=== PATIENT | female | born 1975 | race African-American/Black ===

== ENCOUNTER 2018-03-28 11:39 | Emergency (ER) | payer BC ==
[~2018-03-28] VITALS: Ht 175.3 cm; Wt 93.0 kg
--- NOTE | ~2018-03-28 | EKG ---
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: : 1975 Requested By: Lisa Wright Order Number: [id number] MD: Santos Luna Measurements Intervals [place] Rate: 75 P: 32 MD: 160 QRS: -14 QRSD: 84 T: 7 QT: 380 QTc: 425 Interpretive Statements Sinus rhythm Left ventricular hypertrophy ST elev, probable normal early repol pattern Compared to ECG 08/21/2017 02:00:22 ST (T wave) deviation now present Electronically Signed On 03-29-2018 11:03:46 CDT by Santos Luna [email or web address] <ELECTRONICALLY SIGNED> By: Santos Luna MD 03/29/18 1103 1254 1254 Santos Luna MD /RENY
[~2018-03-28 11:39] MED LIST: AMLODIPINE BESY10 MG PO; FISH OIL 1,001000 M2; HYDROCHLOROTHIA25 M2; IBUPROFEN 600600 M1 PO; KEPPRA 500 MG500 M1 PO; NORCO 5-325 TA1 EACH PO; UNICOMPLEX M TA1 TA1 PO; VALIUM5 MG PO
[2018-03-28 12:18] LABS: ABSOLUTE NEUTROPHILS 6.7 thou/uL (1.4-8.2); HEMATOCRIT 38.2 % (37.0-47.0); HEMOGLOBIN 12.8 gm/dL (12.0-15.0); LYMPHOCYTES 22.4 % (24.0-44.0); MCH 28.1 pg (26.0-34.0); MCHC 33.5 g/dL (28.0-37.0); MCV 83.9 fL (80.0-100.0); PLATELET COUNT 374 thou/uL (150-400); POLYS 65.6 % (36.0-66.0); RBC 4.55 mil/uL (4.20-5.00); RDW 13.7 % (10.5-14.5); WBC 10.2 thou/uL (4.0-11.0)
[2018-03-28 12:27] LABS: CALCIUM 9.1 mg/dL (8.5-10.1); CREATININE 0.8 mg/dL (0.6-1.0); POTASSIUM 3.5 mmol/L (3.5-5.1)
[2018-03-28 12:34] LABS: ALBUMIN 3.5 g/dL (3.4-5.0); TOTAL BILIRUBIN 0.3 mg/dL (<0.1-1.0); TOTAL PROTEIN 7.9 g/dL (6.4-8.2)
[2018-03-28 13:47] LABS: URINE BILIRUBIN NEGATIVE (Negative); URINE BLOOD 1+ (Negative); URINE CLARITY CLEAR; URINE COLOR YELLOW; URINE GLUCOSE-RANDOM* NEGATIVE (Negative); URINE KETONES NEGATIVE (Negative); URINE LEUKOCYTES-REFLEX NEGATIVE (Negative); URINE NITRITE-REFLEX NEGATIVE (Negative); URINE PROTEIN (DIPSTICK) NEGATIVE (Negative); URINE UROBILINOGEN 0.2 E.U./dl (0.2-1.0)
[2018-03-28] MEDS ORDERED: NORVASC10 MG PO (13:51)
[2018-03-28] MEDS ORDERED: KEPPRA 500 MG500 M1 PO (13:51)
[2018-03-28 13:53] LABS: SQUAMOUS 4-10 Moderate /LPF (0-3)
[2018-03-28 13:54] LABS: BACTERIA-REFLEX 1-9 Few /HPF (None Seen); CASTS None Seen /LPF (None Seen); CRYSTALS None Seen /LPF (None Seen); URINE RBC 3-10 Few /HPF (0-2); URINE WBC-REFLEX None Seen /HPF (0-5)
[2018-03-28 13:55] LABS: AMP/METHAMP Negative (Negative); BARBITURATES Negative (Negative); BENZODIAZEPINES Negative (Negative); COCAINE Negative (Negative); METHADONE Negative (Negative); OPIATES Negative (Negative); PCP Negative (Negative)
[2018-03-28 14:11] VITALS: BP 158/91
== END 2018-03-28 14:46 | disposition home or self-care (01) ==
LOC: ER 11:39
PROVIDERS: Physician Assistant
DX: R56.9 Unspecified convulsions (principal); I10 Essential (primary) hypertension; Z76.0 Encounter for issue of repeat prescription; Z91.14 Patient's other noncompliance with medication regimen; F17.210 Nicotine dependence, cigarettes, uncomplicated; Z88.1 Allergy status to other antibiotic agents; Z88.8 Allergy status to other drugs, medicaments and biological substances; Z90.49 Acquired absence of other specified parts of digestive tract; Z90.89 Acquired absence of other organs

== ENCOUNTER 2018-06-30 14:00 | Emergency (ER) | payer BC ==
[~2018-06-30] VITALS: Ht 175.3 cm; Wt 104.3 kg
[~2018-06-30 14:00] MED LIST changes: +NORVASC10 MG PO
[2018-06-30] MEDS ORDERED: KEPPRA 500 MG500 M1 PO ×2 (14:55→15:00)
[2018-06-30 15:07] VITALS: BP 171/94
--- NOTE | 2018-07-01 08:18 | EKG ---
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 : 1975 Requested By: Akash Jones Order Number: [id number] MD: Charlie Chen Measurements Intervals [place] Rate: 90 P: 36 [place]: 156 QRS: -7 QRSD: 86 T: 12 QT: 354 QTc: 433 Interpretive Statements Sinus rhythm Probable left atrial enlargement Left ventricular hypertrophy Compared to ECG 03/28/2018 12:54:56 ST (T wave) deviation no longer present Electronically Signed On 07-01-2018 8:18:28 CONFERENCE DIRECTOR by Charlie Chen [email or web address] <ELECTRONICALLY SIGNED> By: Charlie Chen MD 07/01/1818 1441 1441 Charlie Chen MD /RENY
== END 2018-06-30 15:08 | disposition home or self-care (01) ==
LOC: ER 14:00
DX: R55 Syncope and collapse (principal); I10 Essential (primary) hypertension; Z90.49 Acquired absence of other specified parts of digestive tract; E89.0 Postprocedural hypothyroidism; F17.210 Nicotine dependence, cigarettes, uncomplicated; Z88.1 Allergy status to other antibiotic agents; Z88.8 Allergy status to other drugs, medicaments and biological substances

== ENCOUNTER → 2018-08-21 | Outpatient (CLI) | payer BC ==
[~2018-08-21] MED LIST changes: +KEPPRA1000 MG PO
--- NOTE | ~2018-08-21 | EEG ---
[facility] [place] [address] ELECTROENCEPHALOGRAM Name: HILDA MAJANO Room #: [facility].#: [id number] ������������������ Admission: 08/21/18 ������������������ Attend Phys: Hu Faulkner MD Discharge: ������������������ Date of : 75 Report #: [id number] ����������������������������������������������������������������� [id number] THIS REPORT FOR: //name// CC: Bell Faulkner DATE OF SERVICE: 08/21/2018 This patient has a history of seizure. EEG was done to further evaluate that. EEG was done by placing the electrodes by standard 10-20 system of electrode placement. Both referential and sequential montages were used for recording. Background activity in this patient's EEG is about 11 Hz and 40 microvolt. The patient went to sleep and that is associated with bilateral slowing and vertex sharp waves. Photic stimulation is unremarkable. Throughout the record, no active epileptiform activity was noticed. IMPRESSION: This patient's electroencephalogram is within normal limits. It might be mentioned that electroencephalogram can be normal in a patient with seizure disorder. Thank you very much for this referral. ���������������������������������������� ���������������������������������������� By: ��������������������������������������������� 191 51 Hu Faulkner MD /nt
== END ==
LOC: NEURO 08:15
DX: R56.9 Unspecified convulsions (principal); G93.2 Benign intracranial hypertension

== ENCOUNTER 2018-08-23 17:38 | Inpatient (IN) | payer BC ==
[~2018-08-23] VITALS: Ht 175.3 cm; Wt 113.9 kg
--- NOTE | ~2018-08-23 | HC ---
[facility] [place] [address] CONSULTATION Name: HILDA MAJANO Room #: 460-P [facility] IN M.R.#: [id number] Admission: 08/23/18 ������������������ Attend Phys: Christian De Jesus MD Discharge: 08/24/18 ������������������ Date of : 75 Report #: [id number] THIS REPORT FOR: //name// CC: Christian Hebert REASON FOR CONSULTATION: Hypertension. HISTORY OF PRESENT ILLNESS: The patient is a 43-year-old woman with a history of a seizure disorder. She has a history of hypertension and tobacco dependency. She follows closely with Dr. Job Hebert and Dr. Faulkner. Yesterday, she had a witnessed seizure. She walked up stairs, and her witnessed tonic-clonic seizure activity, this lasted for about a minute. She does report that she has been out of her seizure medicines for a couple of days. She also reports being out of blood pressure medicines for quite some time. Presenting EKG demonstrated sinus tachycardia with minimal voltage for LVH, this was an otherwise normal tracing. She denies chest pain, pressure or heart failure symptoms. No history of palpitations, no heart failure symptoms including orthopnea, paroxysmal nocturnal dyspnea or lower extremity edema. MEDICATIONS: Include Keppra 500 mg twice daily. Her previous medicines include hydrochlorothiazide 25 mg daily. ALLERGIES: SHE IS ALLERGIC TO ERYTHROMYCIN. PAST MEDICAL HISTORY: Notable for hypertension, appendectomy, depression, cholecystectomy, partial thyroidectomy, tubal ligation. SOCIAL HISTORY: She is an ongoing smoker. . FAMILY HISTORY: Notable for mother who had heart related problems. She does not know more details on this. REVIEW OF SYSTEMS: All systems negative except as that noted above. PHYSICAL EXAMINATION: GENERAL: Reveals a pleasant woman in no distress. VITAL SIGNS: Blood pressure is 129/80, heart rate is 74 and regular. She is afebrile. HEENT: There are neither xanthelasma, subcutaneous xanthomata, oral mucosal or digital cyanosis or kyphoscoliosis present. CHEST: Clear to auscultation and percussion. CARDIOVASCULAR: Regular rate and rhythm with normal S1, S2. No murmurs, gallops or rubs. ABDOMEN: Soft and nontender. EXTREMITIES: Without cyanosis, clubbing or edema. Radial pulses are 2+. NEUROLOGIC: She is alert with a nonfocal exam. [facility] [address] [place] [address] CONSULTATION Name: HILDA MAJANO Room #: 460-P [facility] IN M.R.#: [id number] Admission: 08/23/18 ������������������ Attend Phys: Christian De Jessu MD Discharge: 08/24/18 ������������������ Date of : 75 Report #: [id number] LABORATORY DATA: Sodium 138, potassium 3.1, creatinine 0.8, troponin 0. Tox screen negative. White count 13, hemoglobin 11, hematocrit 34, platelet count 334. Head CT unremarkable. Chest x-ray normal. IMPRESSION: 1. Seizure disorder, recurrent, off medicines. 2. Hypertension. 3. Tobacco dependency. RECOMMENDATIONS: 1. Resume HCTZ with potassium supplementation. 2. Compliance with medicines reinforced. 3. Dietary salt restriction -- diet discussed. Periodic home blood pressure assessments recommended. 4. Consider echocardiogram with Doppler to evaluate for LVH. I have discussed these issues with the patient and her family. Thank you for asking me to participate in her care. ��������������������������������������������� ���������������������������������������� By: ��������������������������������������������� 1623 1210 Pieter Gonzalez MD, FACC /nt
--- NOTE | ~2018-08-23 | HC ---
[facility] [place] [address] CONSULTATION Name: HILDA MAJANO Room #: 460-P [facility] IN M.R.#: [id number] Admission: 08/23/18 ������������������ Attend Phys: Christian De Jesus MD Discharge: 08/24/18 ������������������ Date of : 75 Report #: [id number] THIS REPORT FOR: //name// [facility] DATE OF SERVICE: 08/24/2018 HISTORY OF PRESENT ILLNESS: This is a 43-year-old female patient who was seen by me for seizures. This patient has an extreme amount of noncompliance. I had multiple discussions with this patient in the past. I saw the patient yesterday in the Emergency Room as well as today. I again had discussion with her that there is some amount of compliance she has can be catastrophic and it can be fatal. She had a history of seizure, but we have not determined any cause for that. I have done an MRI of the brain with and without contrast and we did also an MRV in this patient. All the workup has been unremarkable, but this patient continued to have seizure, but this always happened when this patient tried to stop her medication. At this time, the patient has run out of her medications. I called myself and I called the pharmacy and I told her that she must take her medications and not miss a dose. She took 1 dose, then she said she did not take it for 2 days. I do not know why she will not take medicine for 2 days and she does not have any excuse either. She has been diagnosed with pseudotumor cerebri. We have repeatedly asked her to go to Dr. Metcalf. She has not made that appointment, but finally she did it, but she has not seen Dr. Metcalf. REVIEW OF SYSTEMS: Positive for seizure, but there is extreme amount of noncompliance, which is a problem; however, the workup for seizure has been mostly unremarkable. She said she used to have a small seizure, now she has big seizure, she does not like Keppra. She had tubal ligation in the past. She had a partial thyroidectomy. She had a history of depression in the past. PAST MEDICAL HISTORY: As described above. FAMILY HISTORY: Unremarkable. SOCIAL HISTORY: She said she smokes cigarettes, but she does not use any other drugs and she does not drink alcohol. PHYSICAL EXAMINATION: Indicates she is alert. She is responsive. She can follow simple commands. Her cranial nerve examinations appear unremarkable. I [address] [address] CONSULTATION Name: HILDA MAJANO Room #: 460-P [facility] IN ..#: [id number] Admission: 08/23/18 ������������������ Attend Phys: Christian De Jesus MD Discharge: 08/24/18 ������������������ Date of : 75 Report #: [id number] cannot look at the fundus very well, but she has an appointment with Dr. Metcalf. Neuromuscular examinations appear unremarkable. There is no meningeal sign. There is no cardiac abnormality. Vital signs are maintained with a blood pressure of 129/80, respirations 15, pulse is 74, temperature is 98.4. She did have increased white count, but that is probably because of her seizures. Her head CT was unremarkable. They did even a CT C-spine, which also appeared unremarkable. Her magnesium was normal. IMPRESSION: 1. History of seizure, but all the workup so far is unremarkable. 2. Subtle abnormality in EKGs, but no arrhythmias have been demonstrated, which can explain the patient's seizures. 3. They do look epileptic seizure even if the EEG continued to be normal. 4. Extreme amount of dangerous noncompliance. RECOMMENDATIONS: 1. Neurologically, I think we should continue Keppra for the time being. 2. I asked her to go to Dr. Tinsley at [facility] who is an epileptologist and see if she needs prolonged EEG or any other workup, but presently, I stressed the compliance that she should stay on the medication. 3. I think we should do some cardiac workup because of EKG abnormalities and the fact that we have never documented any abnormality on her MRI, although her EEG has demonstrated epileptiform activity at one time, but now it is normal. More than 50 minutes of time was spent taking care of this patient and majority of that time was spent counseling the patient on above. I did put a consult with cardiology and probably she should have an echocardiogram or anything else, but from neurological perspective, she can be dismissed. She need to take seizure precautions, which has been discussed with her. ��������������������������������������������� ���������������������������������������� By: ��������������������������������������������� 1258 1033 Hu Faulkner MD /nt
--- NOTE | ~2018-08-23 | EEG ---
[facility] [place] [address] ELECTROENCEPHALOGRAM Name: HILDA MAJANO Room #: 460-P [facility] IN M.R.#: [id number] ������������������ Admission: 08/23/18 ������������������ Attend Phys: Christian De Jesus MD Discharge: ������������������ Date of : 75 Report #: [id number] ����������������������������������������������������������������� [id number] THIS REPORT FOR: //name// CC: Christian Luu [facility] DATE OF SERVICE: 08/24/2018 This patient is being evaluated for seizure. Her EEG was done by placing the electrodes by standard 10-20 system of electrode placement. Both referential and sequential montages were used for recording. Background activity in this patient's EEG is about 9 Hz and 30 microvolts. The patient became drowsy that is associated with bilateral slowing. Photic stimulation was unremarkable. Throughout the record, no active epileptiform activity was noticed. IMPRESSION: This patient's EEG is within normal limits. It does not demonstrate any clear-cut epileptiform activity. EEG can be normal in a patient with seizure disorder. ���������������������������������������� ���������������������������������������� By: ��������������������������������������������� 1216 1431 Hu Faulkner MD /nt
[2018-08-23 17:38] VITALS: BP 202/106
[~2018-08-23 17:38] MED LIST changes: -KEPPRA1000 MG PO
[2018-08-23 18:10] LABS: ABSOLUTE NEUTROPHILS 12.5 thou/uL (1.4-8.2); BASOPHILS 0.5 % (0.0-2.0); EOSINOPHILS 0.8 % (0.0-3.0); HEMOGLOBIN 12.8 gm/dL (12.0-15.0); LYMPHOCYTES 19.5 % (24.0-44.0); MCHC 32.9 g/dL (28.0-37.0); MCV 85.2 fL (80.0-100.0); PLATELET COUNT 364 thou/uL (150-400); POLYS 72.2 % (36.0-66.0); RBC 4.57 mil/uL (4.20-5.00); WBC 17.3 thou/uL (4.0-11.0)
[2018-08-23 18:18] LABS: CALCIUM 9.2 mg/dL (8.5-10.1); CREATININE 1.1 mg/dL (0.6-1.0); POTASSIUM 3.6 mmol/L (3.5-5.1)
[2018-08-23 18:24] LABS: ALBUMIN 3.8 g/dL (3.4-5.0); TOTAL BILIRUBIN 0.2 mg/dL (<0.1-1.0)
[2018-08-23 19:47] LABS: URINE BILIRUBIN NEGATIVE (Negative); URINE BLOOD 2+ (Negative); URINE CLARITY CLEAR; URINE COLOR YELLOW; URINE GLUCOSE-RANDOM* NEGATIVE (Negative); URINE KETONES NEGATIVE (Negative); URINE LEUKOCYTES-REFLEX NEGATIVE (Negative); URINE NITRITE-REFLEX NEGATIVE (Negative); URINE PROTEIN (DIPSTICK) TRACE (Negative); URINE SPECIFIC GRAVITY >= 1.030 (1.005-1.035); URINE UROBILINOGEN 0.2 E.U./dl (0.2-1.0)
[2018-08-23 20:02] LABS: SQUAMOUS 4-10 Moderate /LPF (0-3)
[2018-08-23 20:06] LABS: BACTERIA-REFLEX 1-9 Few /HPF (None Seen); CASTS None Seen /LPF (None Seen); CRYSTALS None Seen /LPF (None Seen); URINE RBC 3-10 Few /HPF (0-2); URINE WBC-REFLEX 0-5 Rare /HPF (0-5)
[2018-08-23 23:28] VITALS: BP 151/83
[2018-08-24 00:03] LABS: AMP/METHAMP Negative (Negative); BARBITURATES Negative (Negative); BENZODIAZEPINES Negative (Negative); COCAINE Negative (Negative); METHADONE Negative (Negative); OPIATES Negative (Negative); PCP Negative (Negative)
[2018-08-24 00:23] VITALS: BP 160/89
[2018-08-24] MEDS ORDERED: KEPPRA1000 MG PO (00:31)
[2018-08-24 01:02] VITALS: BP 151/93
[2018-08-24 04:16] VITALS: BP 130/85
[2018-08-24 05:19] LABS: HEMATOCRIT 34.6 % (37.0-47.0); HEMOGLOBIN 11.4 gm/dL (12.0-15.0); MCV 84.7 fL (80.0-100.0); RBC 4.08 mil/uL (4.20-5.00); RDW 13.9 % (10.5-14.5); WBC 13.3 thou/uL (4.0-11.0)
[2018-08-24 05:31] LABS: CALCIUM 8.6 mg/dL (8.5-10.1); CREATININE 0.8 mg/dL (0.6-1.0); POTASSIUM 3.1 mmol/L (3.5-5.1)
--- NOTE | 2018-08-24 07:50 | NUR ---
PATIENT ARRIVED ON THE UNIT ON 08/24/18 0015HRS. UPON ARRIVAL, PT WAS AOX4 AND GAIT WAS STABLE. SEIZURE AND HIGH FALL RISK PRECAUTION ACTIVATED. PATIENT HAD A MEAL BEFORE FOING TO BED. THE NIGHT PROGESSED, PATIENT SLEPT WELL. NEURO CONSULT FOR DR. MURILLO WAS CALLED IN THE AM. PATIENT IS STABLE AND IS PROGRESSING TOWARDS DISCHARGE GOALS.
[2018-08-24 08:04] VITALS: BP 129/80
--- NOTE | 2018-08-24 11:44 | NUR ---
TOWARDS POC PT A/O X4, VSS, AFEBRILE, DENIES PAIN. NO EPISODES SEIZURES, FALL/SEIZURE PRECAUTION IN PLACE, AT BEDSIDE. PROBABLE DC TODAY, ONCE SEEN AND CLEARED BY NEURO. WILL CONTINUE TO MONITOR.
--- NOTE | 2018-08-24 11:49 | EKG ---
[address] [address] ELECTROCARDIOGRAM REPORT Name: HILDA MAJANO Room #: 460-P [facility] IN M.R.#: [id number] ������������������ Admission: 08/23/18 ������������������ Attend Phys: Christian De Jesus MD Discharge: ������������������ Date of : 75 Report #: [id number] ����������������������������������������������������������������� [id number] THIS REPORT FOR: //name// [facility] ED Test Date: 2018-08-23 Test Time: 17:50:38 Pat Name: HILDA MAJANO Department: Room: [facility] Gender: F Meteorologist In Charge: : 1975 Requested By: Radha Hernandez Order Number: [id number] MD: Pieter Gonzalez Measurements Intervals [place] Rate: 104 P: 47 [place]: 169 QRS: 0 QRSD: 84 T: 30 QT: 339 QTc: 446 Interpretive Statements Sinus tachycardia Left ventricular hypertrophy Compared to ECG 06/30/2018 14:41:20 Heart rate has increased Electronically Signed On 08-24-2018 11:49:45 CDT by Pieter Gonzalez [email or web address] ��������������������������������������������� <ELECTRONICALLY SIGNED> ���������������������������������������� By: Pieter Gonzalez MD, [facility] ��������������������������������������������� 08/24/18 1149 1750 175 Pieter Gonzalez MD, FACC /EPI
[2018-08-24 16:27] VITALS: BP 129/80
== END 2018-08-24 16:53 | disposition home or self-care (01) | DRG 101 ==
LOC: ER 17:38 → EROBS 20:47 → 4W 08-24 00:11
PROVIDERS: Nurse Practitioner Family; ADMIT Hospitalist
DX: G40.909 Epilepsy, unspecified, not intractable, without status epilepticus (principal); I10 Essential (primary) hypertension; E89.0 Postprocedural hypothyroidism; F17.210 Nicotine dependence, cigarettes, uncomplicated; Z90.49 Acquired absence of other specified parts of digestive tract; Z79.899 Other long term (current) drug therapy; Z88.1 Allergy status to other antibiotic agents; Z88.8 Allergy status to other drugs, medicaments and biological substances; Z82.49 Family history of ischemic heart disease and other diseases of the circulatory system

== ENCOUNTER 2019-01-02 01:51 | Emergency (ER) | payer BC ==
[~2019-01-02] VITALS: Ht 175.3 cm; Wt 63.5 kg
--- NOTE | ~2019-01-02 | EMS ---
[place] [address] EMS Patient Care Report Name: HILDA MAJANO Room #: DEP [facility]#: [id number] Admission: 01/02/19 Attend Phys: Discharge: 01/02/19 Date of : 75 Report #: [id number] THIS REPORT FOR: //name// Report Transmitted: 01/05/2019 11:36 EMS Care Summary [place], [place]/[facility] Incident [id number] @ 01/02/2019 01:[address] [place] [address] Patient HILDA MAJANO Female, 43 Years 1975 Patient Address [address] [place] [address] Patient History Hypertension,Seizures, Patient Allergies No known allergies, Patient Medications Topamax, Amlodipine, Chief Complaint Seizure Disposition Transported No Lights/[place] Reason Convulsions/Seizure Transported To [facility] Narrative 43 y/o female with a seizure. On arrival found pt laying on her right side in bed with and P28 on scene. stated the pt had a full body [place] [address] EMS Patient Care Report Name: HILDA MAJANO [facility] [id number] Admission: 01/02/19 Attend Phys: Discharge: 01/02/19 Date of : 75 Report #: [id number] five minutes prior to EMS arrival. Pt was alert to painful stimuli on EMS arrival. EMS checked pt VS and blood pressure was low. EMS attempted an IV, unsuccessful. P28/EMS rolled pt on her side to put the megamover under her to move pt to stretcher in front yard, pt started to wake up and come to. Pt was post ictal and confused. EMS/P28 used megamover to transfer pt to stretcher and into ambulance. Once in ambulance EMS placed an IV. EMS monitored pt/VS/ECG en route to [facility] ED. Transferred care of pt to [facility] ED RN without incident. Initial Vitals @01:40P: 109,BP: 119/62,SpO2: 95, @01:29P: 108,R: 18,BP: 82/47,Pain: 0/10,GCS: 11,Glucose: 202,CO: 11,SpO2: 93,Revised Trauma: 10, @01:46P: 102,BP: 110/69,GCS: 14,CO: 11,SpO2: 95, Assessments @01:27MENTAL:Other,SKIN:No Abnormalities,HEENT:Head/Face: No Abnormalities,Eyes: No Abnormalities,Neck/Airway: No Abnormalities,LUNG SOUNDS:General: No Abnormalities,Left Upper: No Abnormalities,Right Upper: No Abnormalities,Left Lower: No Abnormalities,Right Lower: No Abnormalities,ABDOMEN:General: No Abnormalities,Left Upper: No Abnormalities,Right Upper: No Abnormalities,Left Lower: No Abnormalities,Right Lower: No Abnormalities,PELVIS//GI:No Abnormalities,EXTREMITIES:Capillary Refill: Left Upper: < 2 Sec,Left Arm: No Abnormalities,Right Arm: No Abnormalities,Left Leg: No Abnormalities,Right Leg: No Abnormalities,PULSE:Radial: 2+ Normal,NEURO:Seizures,@01:45MENTAL:Person Oriented,Other,Time Oriented,Place Oriented,SKIN:HEENT:LUNG SOUNDS:ABDOMEN:PELVIS//GI:EXTREMITIES:PULSE:NEURO: Impression Seizures Procedures @01:27ALS AssessmentResponse: Not ApplicableSucceeded@01:39Saline Lock 10cc (20 ga) Site: Antecubital-LeftResponse: UnchangedSucceeded@01:31Saline Lock 0cc (20 ga) Site: Hand-RightResponse: UnchangedFailed Timeline 01:18,Call Received :18,Dispatch Notified :21,Dispatched :21,En Route 01:25,On Scene 01:27,At Patient 01:27,ALS Assessment,Response: Not ApplicableSucccolumb[facility], [facility] [address] [place] [address] EMS Patient Care Report Name: HILDA MAJANO [facility] [id number] Admission: 01/02/19 Attend Phys: Discharge: 01/02/19 Date of : 75 Report #: [id number] 01:29,BP: 82/47 M,PULSE: 108,RR: 18 R,SPO2: 93 Ox,ETCO2: ,B,PAIN: 0,GCS: 11, 01:31,Saline Lock 0cc 20 ga Site: Hand-Right,Response: UnchangedFailed, 01:39,Saline Lock 10cc 20 ga Site: Antecubital-Left,Response: UnchangedSucceeded, 01:40,BP: 119/62 M,PULSE: 109,RR: R,SPO2: 95 Ox,ETCO2: ,BG: ,PAIN: ,GCS: , 01:42,Depart Scene 01:46,BP: 110/69 M,PULSE: 102,RR: R,SPO2: 95 Ox,ETCO2: ,BG: ,PAIN: ,GCS: 14, 01:48,At Destination 01:59,Call Closed Disclaimer v1.1 Copyright 2019 [employer] This EMS Care Summary contains data elements from the applicable legal record (which may be displayed differently). It is designed to provide pertinent information for the following purposes: continuity of care, clinical quality, and state data reporting. The complete legal record is available to ED staff and administrators of the receiving hospital in [employer]'s Patient Tracker. All data is provided "as is."
--- NOTE | ~2019-01-02 | EMS ---
[place] [address] EMS Patient Care Report Name: HILDA MAJANO Room #: DEP [facility]#: [id number] Admission: 01/02/19 Attend Phys: Discharge: 01/02/19 Date of : 75 Report #: [id number] THIS REPORT FOR: //name// Report Transmitted: 01/02/2019 03:28 EMS Care Summary [place], [place]/[facility] Incident [id number] @ 01/02/2019 01:21 Incident Location [address] [place] [address] Patient HILDA MAJANO Female, 43 Years 1975 Patient Address [address] [place] [address] Patient History Hypertension,Seizures, Patient Allergies No known allergies, Patient Medications Topamax, Amlodipine, Chief Complaint Seizure Disposition Transported No Lights/[place] Reason Convulsions/Seizure Transported To [facility] Narrative 43 y/o female with a seizure. On arrival found pt laying on her right side in bed with and P28 on scene. stated the pt had a full body [place] [address] EMS Patient Care Report Name: HILDA MAJANO Room #: DEP [facility]#: [id number] Admission: 01/02/19 Attend Phys: Discharge: 01/02/19 Date of : 75 Report #: [id number] five minutes prior to EMS arrival. Pt was alert to painful stimuli on EMS arrival. EMS checked pt VS and blood pressure was low. EMS attempted an IV, unsuccessful. P28/EMS rolled pt on her side to put the megamover under her to move pt to stretcher in front yard, pt started to wake up and come to. Pt was post ictal and confused. EMS/P28 used megamover to transfer pt to stretcher and into ambulance. Once in ambulance EMS placed an IV. EMS monitored pt/VS/ECG en route to [facility] ED. Transferred care of pt to [facility] ED RN without incident. Initial Vitals @01:40P: 109,BP: 119/62,SpO2: 95, @01:29P: 108,R: 18,BP: 82/47,Pain: 0/10,GCS: 11,Glucose: 202,CO: 11,SpO2: 93,Revised Trauma: 10, @01:46P: 102,BP: 110/69,GCS: 14,CO: 11,SpO2: 95, Assessments @01:27MENTAL:Other,SKIN:No Abnormalities,HEENT:Head/Face: No Abnormalities,Eyes: No Abnormalities,Neck/Airway: No Abnormalities,LUNG SOUNDS:General: No Abnormalities,Left Upper: No Abnormalities,Right Upper: No Abnormalities,Left Lower: No Abnormalities,Right Lower: No Abnormalities,ABDOMEN:General: No Abnormalities,Left Upper: No Abnormalities,Right Upper: No Abnormalities,Left Lower: No Abnormalities,Right Lower: No Abnormalities,PELVIS//GI:No Abnormalities,EXTREMITIES:Capillary Refill: Left Upper: < 2 Sec,Left Arm: No Abnormalities,Right Arm: No Abnormalities,Left Leg: No Abnormalities,Right Leg: No Abnormalities,PULSE:Radial: 2+ Normal,NEURO:Seizures,@01:45MENTAL:Person Oriented,Other,Time Oriented,Place Oriented,SKIN:HEENT:LUNG SOUNDS:ABDOMEN:PELVIS//GI:EXTREMITIES:PULSE:NEURO: Impression Seizures Procedures @01:27ALS AssessmentResponse: Not ApplicableSucceeded@01:39Saline Lock 10cc (20 ga) Site: Antecubital-LeftResponse: UnchangedSucceeded@01:31Saline Lock 0cc (20 ga) Site: Hand-RightResponse: UnchangedFailed Timeline 01:18,Call Received :18,Dispatch Notified :21,Dispatched :21,En Route 01:25,On Scene 01:27,At Patient 01:27,ALS Assessment,Response: Not ApplicableSucccampbellton-[facility], [address] [address] EMS Patient Care Report Name: HILDA MAJANO [facility] [id number] Admission: 01/02/19 Attend Phys: Discharge: 01/02/19 Date of : 75 Report #: [id number] 01:29,BP: 82/47 M,PULSE: 108,RR: 18 R,SPO2: 93 Ox,ETCO2: ,B,PAIN: 0,GCS: 11, 01:31,Saline Lock 0cc 20 ga Site: Hand-Right,Response: UnchangedFailed, 01:39,Saline Lock 10cc 20 ga Site: Antecubital-Left,Response: UnchangedSucceeded, 01:40,BP: 119/62 M,PULSE: 109,RR: R,SPO2: 95 Ox,ETCO2: ,BG: ,PAIN: ,GCS: , 01:42,Depart Scene 01:46,BP: 110/69 M,PULSE: 102,RR: R,SPO2: 95 Ox,ETCO2: ,BG: ,PAIN: ,GCS: 14, 01:48,At Destination 01:59,Call Closed Disclaimer v1.1 Copyright 2019 [employer] This EMS Care Summary contains data elements from the applicable legal record (which may be displayed differently). It is designed to provide pertinent information for the following purposes: continuity of care, clinical quality, and state data reporting. The complete legal record is available to ED staff and administrators of the receiving hospital in [employer]'s Patient Tracker. All data is provided "as is."
[~2019-01-02 01:51] MED LIST changes: +KEPPRA1000 MG PO
[2019-01-02 03:15] VITALS: BP 107/65
== END 2019-01-02 03:15 | disposition home or self-care (01) ==
LOC: ER 01:51
DX: R56.9 Unspecified convulsions (principal); F17.210 Nicotine dependence, cigarettes, uncomplicated; I10 Essential (primary) hypertension; Z90.49 Acquired absence of other specified parts of digestive tract; Z88.1 Allergy status to other antibiotic agents; Z88.8 Allergy status to other drugs, medicaments and biological substances

== ENCOUNTER 2019-03-13 21:41 | Emergency (ER) | payer BC ==
[~2019-03-13] VITALS: Ht 175.3 cm; Wt 95.3 kg
[2019-03-13] MEDS ORDERED: NORCO 5-325 TA1 EAC1 PO (22:11)
[2019-03-13] MEDS ORDERED: SSD CREAM 1% 5050 GM TOP (22:11)
[2019-03-13 23:07] VITALS: BP 160/95
== END 2019-03-13 23:09 | disposition home or self-care (01) ==
LOC: ER 21:41
DX: T20.27XA Burn of second degree of neck, initial encounter (principal); T20.23XA Burn of second degree of chin, initial encounter; T21.21XA Burn of second degree of chest wall, initial encounter; T31.0 Burns involving less than 10% of body surface; G40.89 Other seizures; I10 Essential (primary) hypertension; F17.210 Nicotine dependence, cigarettes, uncomplicated; Z90.49 Acquired absence of other specified parts of digestive tract; Z88.1 Allergy status to other antibiotic agents; Z88.8 Allergy status to other drugs, medicaments and biological substances; X11.8XXA Contact with other hot tap-water, initial encounter; Y93.89 Activity, other specified; Y92.090 Kitchen in other non-institutional residence as the place of occurrence of the external cause; Y99.8 Other external cause status